=== PATIENT | male | born 1940 | race Caucasian/White ===

== ENCOUNTER 2017-09-02 05:26 | Day surgery (SDC) | payer OTHER ==
[~2017-09-02] VITALS: Ht 175.3 cm; Wt 112.0 kg
--- NOTE | ~2017-09-02 | O ---
[facility] [place] [address] OPERATIVE REPORT Name: VALDO CARRINGTON Room #: DEP [facility]#: [id number] Admission: 09/02/17 Attend Phys: Jim Shaw MD Discharge: 09/02/17 Date of : 38 Report #: [id number] THIS REPORT FOR: //name// CC: CORTES Shaw DATE OF SERVICE: 09/02/2017 SURGEON: Jim Shaw MD SENIOR MARKETING ASSOCIATE: None. PREOPERATIVE DIAGNOSIS: Bilateral lower lid ectropion. POSTOPERATIVE DIAGNOSIS: Bilateral lower lid ectropion. OPERATION PERFORMED: Bilateral lower lid ectropion repair. ANESTHESIA: Local with IV sedation. COMPLICATIONS: None. INDICATIONS FOR PROCEDURE: This patient has bilateral acquired lower lid ectropion with chronic tearing and discharge. The current procedures are undertaken in order to improve the patient's visual function, lacrimal outflow, and level of comfort. Informed consent was obtained to include but not limit to the risk of loss of vision, bleeding, infection, scarring, failure to improve the problem and need for further surgery. DESCRIPTION OF OPERATION: The patient was taken to the operating room where 2% Xylocaine with epinephrine mixed with equal parts of 0.75% Marcaine with Wydase was administered transcutaneously and transconjunctivally to each lower lid and lateral canthal area. The patient was then prepped and draped in the usual sterile fashion. A Gen clamp was then used to clamp the left lateral canthus following which a sharp canthotomy and cantholysis were performed. The tarsal strip was prepared laterally, removing the lash bearing portion of the redundant lid margin and the redundant tarsal plate. Hemostasis was achieved with a monopolar cautery, as it was throughout the case. The tarsal strip was then secured to the internal portion of the lateral orbital tubercle with two interrupted 5-0 Prolene sutures. The lateral canthal angle was sharply reformed as the subcutaneous structures and the skin were closed with multiple interrupted 6-0 plain gut sutures. Attention was then turned to the right side where the same procedure was [facility] [address] [place] [address] OPERATIVE REPORT Name: VALDO CARRINGTON Room #: DEP [facility].#: [id number] Admission: 09/02/17 Attend Phys: Jim Shaw MD Discharge: 09/02/17 Date of : 38 Report #: [id number] performed. The wounds were cleaned and dressed with ophthalmic antibiotic ointment. The patient was then transported to the recovery area, having tolerated the procedure well with no anesthetic or operative complications being noted. <ELECTRONICALLY SIGNED> By: Jim Shaw MD 09/16/17 0622 [id number] Jim Shaw MD /nt
[~2017-09-02 05:26] MED LIST: AGGRENOX 25 MG1 EACH PO; ASPIR 8181 MG PO; ATORVASTATIN CA40 MG PO; BACTROBAN NASAL1 GM TOP; BENICAR20 MG PO; BENICAR40 MG PO; CLONIDINE HCL0.2 M2 PO; FENOFIBRATE160 MG PO; FISH OIL 1,001000 M2 PO; FISHOIL; FLOMAX0.4 MG PO; FUROSEMIDE 20 M20 M1 PO; FUROSEMIDE 40 M40 M1 PO; GLUCOSAMINE &1 EACH PO; KLOR-CON 10 ER10 MEQ PO; LANTUS SQ; LANTUS100 UNIT/M SUBQ; LEVSIN0.125 MG PO; LIPITOR20 MG PO; LOPRESSOR25 PO; LOPRESSOR50 MG PO; LORTAB 7.5/5001 TA3 OR; MAGNESIUM OXID200 MG PO; NITROGLYCERIN0.4 MG PO; NOVOLOG100 UNIT/1 SUBQ; PERCOCET 5-3251 EACH PO; PHISOHEX148 ML TP; PROSCAR 5MG TABL5 MG PO; SAW PALMETTO500 MG PO; SENNA OR; SYMLIN0.6 MG/ML SQ; TRICOR145 MG PO; VESICARE 5 MG TA5 MG PO; VITAMIN D1000 UNI1 PO; ZOLOFT100 MG PO
[2017-09-02 12:34] VITALS: BP 161/820
== END 2017-09-02 13:58 | disposition home or self-care (01) ==
LOC: OR 05:26 → TBA 05:26 → OR 07:41
DX: H02.102 Unspecified ectropion of right lower eyelid (principal); H02.105 Unspecified ectropion of left lower eyelid; I10 Essential (primary) hypertension; E11.9 Type 2 diabetes mellitus without complications; G47.33 Obstructive sleep apnea (adult) (pediatric); E78.00 Pure hypercholesterolemia, unspecified; N40.0 Benign prostatic hyperplasia without lower urinary tract symptoms; Z95.1 Presence of aortocoronary bypass graft; Z85.828 Personal history of other malignant neoplasm of skin; Z98.890 Other specified postprocedural states; Z87.891 Personal history of nicotine dependence; Z79.4 Long term (current) use of insulin; Z86.73 Personal history of transient ischemic attack (TIA), and cerebral infarction without residual deficits; Z79.82 Long term (current) use of aspirin; Z79.899 Other long term (current) drug therapy
CPT/HCPCS: 50010; 50101; 50386; 50398; 51636; 56527; 56531; 62110; 62850; 70005

== ENCOUNTER 2017-09-30 05:24 | Day surgery (SDC) | payer OTHER ==
[~2017-09-30] VITALS: Ht 175.3 cm; Wt 113.4 kg
--- NOTE | ~2017-09-30 | O ---
[facility] [place] [address] OPERATIVE REPORT Name: VALDO CARRINGTON Room #: DEP [facility]#: [id number] Admission: 09/30/17 Attend Phys: Jim Shaw MD Discharge: 09/30/17 Date of : 38 Report #: [id number] THIS REPORT FOR: //name// CC: Conner Yañez DATE OF SERVICE: 09/30/2017 SURGEON: Jim Shaw MD SWORD SWALLOWER: None. PREOPERATIVE DIAGNOSIS: Bilateral upper lid dermatochalasia with superior visual field defect. POSTOPERATIVE DIAGNOSIS: Bilateral upper lid dermatochalasia with superior visual field defect. OPERATION PERFORMED: Bilateral upper lid functional blepharoplasty. ANESTHESIA: Local with IV sedation. COMPLICATIONS: None. INDICATIONS FOR SURGERY: This patient has acquired upper lid dermatochalasia with superior visual field loss both eyes because of excessive upper lid tissues to include skin and fat. Visual field testing demonstrates dense superior visual defects. Retesting with the upper lid elevated shows an improvement in visual field loss of over 30% and in excess of 12 degrees. The current procedures are undertaken in order to improve the patient's visual function. Informed consent was obtained to include but not limited to the loss of vision, bleeding, infection, scarring, failure to improve the problem and need for further surgery. DESCRIPTION OF OPERATION: The patient was taken to the operating room, where 2% Xylocaine with epinephrine mixed with equal parts of 0.75% Marcaine with Wydase was administered transcutaneously to each upper lid. The patient was then prepped and draped in the usual sterile fashion and a skin-marking pen was then utilized to outline an upper lid crease that was symmetrical on each side. Graefe forceps were then used to quantitate the redundant upper lid skin and it was similarly outlined. The incisions were then made with Gerber scissors and a skin-muscle flap removed from each side with high-temp cautery. Hemostasis was achieved with the monopolar cautery as it was throughout the case. The [address] [address] OPERATIVE REPORT Name: VALDO CARRINGTON Room #: DEP [facility] M.R.#: [id number] Admission: 09/30/17 Attend Phys: Jim Shaw MD Discharge: 09/30/17 Date of : 38 Report #: [id number] orbital septum was then identified and the central and medial fat pads were inspected. The redundant soft tissue was then sculpted with the monopolar cautery. The upper lid crease was then reformed with tightening of the pretarsal orbicularis muscle. The upper lid crease was then further reformed with multiple interrupted 6-0 chromic sutures. The skin was then closed with a running 6-0 plain gut suture. The wound was then cleaned and dressed with ophthalmic antibiotic ointment and a nonstick dressing. The patient was transported to the recovery area, where cold compresses were applied, having tolerated the procedure well with no anesthetic or operative complications being noted. <ELECTRONICALLY SIGNED> By: Jim Shaw MD 10/07/17 0614 [id number] Jim Shaw MD /nt
[2017-09-30 13:11] VITALS: BP 184/80
== END 2017-09-30 14:54 | disposition home or self-care (01) ==
LOC: TBA 05:24 → OR 05:24
DX: H02.834 Dermatochalasis of left upper eyelid (principal); H02.831 Dermatochalasis of right upper eyelid; H53.462 Homonymous bilateral field defects, left side; H53.461 Homonymous bilateral field defects, right side; I10 Essential (primary) hypertension; E11.9 Type 2 diabetes mellitus without complications; E78.00 Pure hypercholesterolemia, unspecified; N40.0 Benign prostatic hyperplasia without lower urinary tract symptoms; G47.33 Obstructive sleep apnea (adult) (pediatric); F32.9 Major depressive disorder, single episode, unspecified; F41.8 Other specified anxiety disorders; Z85.828 Personal history of other malignant neoplasm of skin; Z86.73 Personal history of transient ischemic attack (TIA), and cerebral infarction without residual deficits; Z87.891 Personal history of nicotine dependence; Z95.1 Presence of aortocoronary bypass graft; Z95.5 Presence of coronary angioplasty implant and graft; Z79.4 Long term (current) use of insulin; Z98.890 Other specified postprocedural states; Z79.899 Other long term (current) drug therapy; Z79.82 Long term (current) use of aspirin
CPT/HCPCS: 50010; 50101; 50386; 50398; 51636; 56531; 62110; 62850; 70005